=== PATIENT | male | born 1980 | race Caucasian/White ===

== ENCOUNTER 2017-02-11 10:03 | Emergency (ER) | payer OTHER ==
--- NOTE | 2017-02-11 11:28 | DIAGNOSTIC IMAGING REPORT ---
PROCEDURE: XR FINGER - LEFT (fifth finger). INDICATION: TRAUMA/INJURY TECHNIQUE: Three views. COMPARISON: None. FINDINGS: There is a large metal nail transversing the soft tissues of the distal aspect of the left fifth finger. No definite fractures identified. Osseous structures and joint spaces are otherwise normal. IMPRESSION: 1. Large metal nail traversing soft tissues of the distal left fifth finger. 2. No definite fractures identified.
--- NOTE | 2017-02-11 11:45 | DIAGNOSTIC IMAGING REPORT ---
PROCEDURE: XR FINGER - LEFT (fifth finger). INDICATION: Post removal of foreign body. Assess for fracture. TECHNIQUE: Three views (1138 hours). COMPARISON: Comparison made radiographs of the left fifth finger earlier today (02/11/2017, 1035 hours). FINDINGS: Interval removal of large metal nail foreign bodies from soft tissues of the left fifth finger. Osseous structures and are normal and there is no evidence of fracture. No evidence of residual foreign body. IMPRESSION: 1. Interim removal of large metal nail from left fifth finger. 2. No evidence of fracture.
--- NOTE | 2017-02-11 11:47 | ED CLINICAL REPORT ---
Clinical Report - Physicians/Mid Levels [facility] [address] [place] [address] 02/11/2017 10:03 Patient: JOSE ELIAS SESAY Time Seen: 10:17. Arrived- By private vehicle. Historian- patient. HISTORY OF PRESENT ILLNESS Chief Complaint: Injury to the left 5th (little) finger. The injury happened today. Occurred at a friend's house. The patient sustained a puncture wound from a nail. (he was pulling off sheet rock and a nail that was protruding punctured (through and throug) his left 5th finger). Patient is experiencing mild pain. Patient denies injury to the head or neck. No other injury. REVIEW OF SYSTEMS The patient sustained a laceration. No swelling, tingling, numbness, weakness or foreign body. PAST HISTORY See nurses notes. The patient's dominant hand is the right. PVC's. Type II diabetes mellitus treated with oral med. Tetanus immunization status is unknown. Surgeries: Shoulder surgery. Vasectomy. Medications: GlyBURIDE Oral. Allergies: No Known Drug Allergy. SOCIAL HISTORY Never smoker. Occasional alcohol use. No drug use. Is a local resident. ADDITIONAL NOTES The nursing notes have been reviewed. PHYSICAL EXAM Vital Signs: 02/11/2017 10:14 BP: 140/95. HR: 85. RR: 14. O2 saturation: 100%. Temp: 98.3 F. Pain level now: 3/10. Appearance: Alert. Oriented X3. Patient in mild distress. Head: Head atraumatic. Eyes: Eyes normal inspection. No scleral icterus or pale conjunctivae. Neck: Normal inspection. Neck supple. CVS: Normal heart rate and rhythm. Heart sounds normal. Pulses normal. Respiratory: No respiratory distress. Breath sounds normal. Abdomen: No visible injury. Skin: (nail in 5th finger). Extremities: Anatomic snuffbox, right arm. No wrist injury. Hand and wrist exam otherwise negative. Extremities otherwise negative. Neuro, Vascular and Tendons: Vascular status intact. Sensation intact. Motor intact. Tendon function intact. Neuro: Oriented X 3. No motor deficit. No sensory deficit. LABS, X-RAYS, AND EKG Lt Hand X-ray: (metallic nail in the distal phallanx). Views: AP, lateral and oblique. Technique: good. The X-rays were interpreted contemporaneously by me. Post procedure films: do not show a fracture (nail removed). PROGRESS AND PROCEDURES Removal of Soft Tissue Foreign Body: The foreign body was metal. drywall nail. Located in the left little finger. Anesthesia provided by digital block using 0.50% Marcaine. Did not use epinephrine. Wound prepped with Betadine and Hibiclens. Wound explored. Foreign body visualized, palpated and removed using hemostat. Wound irrigated extensively. The foreign body removed was deep. Dressing applied. Tetanus immunization given. Warnings provided. Course of Care: Tdap Vaccine 0.5 mL IM given. Ancef 1gm IM given. Patient/family counseled. Old ED records reviewed. Disposition: Discharged. Condition: stable and improved. CLINICAL IMPRESSION Removal of deep metal soft tissue foreign body to the left little finger. Puncture wound present. No left fingernail injury. INSTRUCTIONS Apply ice. Elevate affected areas above chest level. Protect wound and keep wound area clean. Change dressing twice daily. You may wash wounds briefly, then dry. Apply neosporin twice daily. Limit use of your left hand until better. Do not work for two days. Warnings: INFECTION: Watch for signs of infection (increasing heat and redness, pus-like drainage, swelling, or increased pain). Return or see your doctor if these signs occur. TETANUS: You were given a tetanus shot during your visit. Make a note for future reference. Your Current Medications: CONTINUE TAKING THE FOLLOWING MEDICATIONS: GlyBURIDE Oral. Prescription Medications: Ibuprofen 600mg tablets: take 1 tablet orally every 8 hours as needed for pain. Dispense thirty (30). No refills. Cephalexin 500 mg: take 1 capsule orally every 6 hours for 3 days. No refill. OTC Medications: Acetaminophen (available over the counter): take according to label instructions. Follow-up: Follow up with your doctor [facility] in about two days. Screening today revealed the patient's blood pressure to be in the hypertensive range. The patient should follow up with a primary care provider for blood pressure management. (Electronically signed by Jason Raymundo DO 02/11/2017 22:35)
--- NOTE | 2017-02-11 11:48 | ED ORDER SUMMARY ---
..... Patient: JOSE ELIAS SESAY OrderSheet [facility] VisitID: [id number] [place] [address] 36y, M Registration Date/Time: 02/11/2017 ORDER SHEET Weight: 104.1 kg Allergies: No Known Drug Allergy GENERAL ORDERS: Finger Left (5th ) Urgent (10:20 02/11/2017 [facility]) (Ack 10:22 OHernandez) (10:57 EHassan R.N.) Suture Set-up: (10:31 02/11/2017 [facility]) (Ack 10:38 TBergley) (10:57 EHassan R.N.) Finger Left (5th) (post fb removal) Urgent (11:12 02/11/2017 [facility]) (Ack 11:17 TBergley) (11:42 TBergley) Dress Wounds (bandaid with bacitracin) (11:46 02/11/2017 [facility]) (11:49 TBergley) MEDICATION ORDERS: Tdap IM 0.5 mL (NOW, per protocol) (10:22 02/11/2017 [facility]) (10:54 EHassan R.N.) Ancef IM 1 gm (NOW) (10:24 02/11/2017 [facility]) (10:54 EHassan R.N.) Bupivacaine Injection 0.5 % (soln) (place at bedside) (10:31 02/11/2017 [facility]) (10:55 EHassan R.N.) IV FLUIDS: ORDER SHEET NOTES: [Electronically signed by Ling Chang R.N. (12:00 02/11/2017)] [Electronically signed by Jason Raymundo DO (22:35 02/11/2017)] [Electronically locked/signed by Ling Chang R.N. (12:02/11/2017)]
--- NOTE | 2017-02-11 11:48 | ED ORDER SUMMARY ---
..... Patient: JOSE ELIAS SESAY OrderSheet [facility] VisitID: [id number] [place] [address] 36y, M Registration Date/Time: 02/11/2017 ORDER SHEET Weight: 104.1 kg Allergies: No Known Drug Allergy GENERAL ORDERS: Finger Left (5th ) Urgent (10:20 02/11/2017 [facility]) (Ack 10:22 OHernandez) (10:57 EHassan R.N.) Suture Set-up: (10:31 02/11/2017 [facility]) (Ack 10:38 TBergley) (10:57 EHassan R.N.) Finger Left (5th) (post fb removal) Urgent (11:12 02/11/2017 [facility]) (Ack 11:17 TBergley) (11:42 TBergley) Dress Wounds (bandaid with bacitracin) (11:46 02/11/2017 [facility]) (11:49 TBergley) MEDICATION ORDERS: Tdap IM 0.5 mL (NOW, per protocol) (10:22 02/11/2017 [facility]) (10:54 EHassan R.N.) Ancef IM 1 gm (NOW) (10:24 02/11/2017 [facility]) (10:54 EHassan R.N.) Bupivacaine Injection 0.5 % (soln) (place at bedside) (10:31 02/11/2017 [facility]) (10:55 EHassan R.N.) IV FLUIDS: ORDER SHEET NOTES: [Electronically signed by Ling Chang R.N. (12:00 02/11/2017)] [Electronically signed by Jason Raymundo DO (22:35 02/11/2017)] [Electronically locked/signed by Ling Chang R.N. (12:02/11/2017)]
--- NOTE | 2017-02-11 11:48 | ED NURSING NOTES ---
Clinical Report - Nurses [facility] [address] [place] [address] 02/11/2017 10:03 Patient: JOSE ELIAS SESAY TRIAGE Triage time 1012 AM. Acuity: LEVEL 4. Chief Complaint: INJURY TO LEFT HAND. INJURY TO THE LEFT LITTLE FINGER (Nail thru the finger). Alert. No acute distress. SEPSIS SCREEN: Sepsis Screen. Negative (no infection suspected/documented). --10:19 Ling Chang R.N. 10:14 02/11/17. BP: 140/95 (regular adult cuff) taken on the left arm, via an automated monitor, while sitting. HR: 85. RR: 14. O2 saturation: 100%. Temp: 98.3 F (oral). Pain level now: 12/23. --10:19 Ling Chang R.N. Weight: 104.1 kg. Height/Length: 70 inches. BMI: 32.9. --10:14 Ling Chang R.N. Medications GlyBURIDE Oral. --10:20 Ling Chang R.N. Allergies No Known Drug Allergy. --12:00 Ling Chang R.N. Medication/allergy information source: the patient. --10:19 Ling Chang R.N. History Arrived by private vehicle. Historian: patient. Accompanied by family. Primary physician (none). 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 Not up to date with immunizations.). This occurred just prior to arrival and today. Occurred at friend's house. He has metallic foreign material (for certain) (left pinky finger). No neck pain, weakness or numbness. Treatment DRUG SAFETY DATA MANAGEMENT SPECIALIST: None. PAST MEDICAL HX: Tetanus status: unknown. Immunizations: status is unknown. SOCIAL HX: Never smoker. Occasional alcohol use. No drug use. No infectious disease exposure. ABUSE ASSESSMENT: No report of abuse. SELF HARM ASSESSMENT: A self harm assessment was performed. The patient answered "no" to the question "Do you have thoughts of harming or killing yourself?" and "Have you recently had thoughts about harming or killing others?". FALL RISK ASSESSMENT: Fall risk assessment completed. No fall risk identified. NUTRITIONAL RISK ASSESSMENT: The nutritional risk assessment revealed no deficiencies. FUNCTIONAL ASSESSMENT: Functional assessment: no impairments noted. LEARNING NEEDS ASSESSMENT: The learning needs assessment revealed no barriers. SKIN INTEGRITY ASSESSMENT: Skin integrity risk assessment completed. No skin integrity risk identified. --10:19 Ling Chang R.N. ( Pt does state that local anesthetics do not work). --10:21 Ling Chang R.N. PROBLEMS: Diabetes Mellitus Type 2. --10:21 Ling Chang R.N. ADDITIONAL SURGERIES: Shoulder Surgery. Visectomy. --10:21 Ling Chang R.N. Interventions ID band on patient. --10:19 Ling Chang R.N. PHYSICAL ASSESSMENT Ambulatory to room. GENERAL / NEURO / PSYCH: Oriented X 4. Alert. Appears in no acute distress. No weakness. No numbness. EXTREMITIES: Capillary refill is less than 2 seconds in the extremities. Extremity pulses are within normal limits. Extremities exhibit normal ROM. Left hand: visualized foreign body. No tenderness, swelling or deformity. SKIN: Skin intact. Skin is warm and dry. --10:19 Ling Chang R.N. NURSING PROGRESS NOTES The initial plan of care for this patient has been created This plan of care was discussed with the patient. Reassurance given. Two patient identifiers checked. Call light placed in reach. Side rails up. Bed placed in lowest position. Brakes of bed on. Patient ready for evaluation- ED physician notified. --10:19 Ling Chang R.N. 10:54 02/11/2017 TDAP IM 0.5 mL given. (Lot#: [id number], expiration date: 07/23/2018, Vacuum Cleaner Repairer: sanofi pasteur). Given in the right deltoid. Allergies verified and confirmed 5 rights. Vaccine information statement provided to the patient. --10:54 Ling Chang R.N. 10:54 02/11/2017 Ancef (CeFAZolin Sodium) IM 1 gm given. Given in the left deltoid (split dose). Allergies verified and confirmed 5 rights. --10:54 Ling Chang R.N. 10:55 02/11/2017 Bupivacaine Injection Injectable 0.5 % given. Allergies verified and confirmed 5 rights. (Given by AR virgen left side). --10:55 Ling Chang R.N. Applied clean dressing consisting of Band-Aid, following the application of antibiotic ointment (bacitracin). --11:50 Deena Tavarez 11:35 02/11/2017 Bupivacaine Injection Response: no adverse reaction. --12:00 Ling Chang R.N. 11:43 02/11/2017 Ancef IM Response: no adverse reaction pain is improving. --11:58 Ling Chang R.N. DISPOSITION / DISCHARGE Departure time: 1155 AM. Condition at departure: improved and stable. The goals identified in the patient's plan of care were met. No learning barriers present. Discharge instructions provided and reviewed with the patient. Reviewed medication(s) side effects, precautions, dosing and course information. Prescription(s) given to the patient. Work note given. Patient verbalized understanding. Written instructions provided in Kinyarwanda. The patient was discharged by the physician. He was discharged home and unaccompanied at time of discharge. He left the Emergency Department ambulatory and via private vehicle. Patient driving. FALL RISK ASSESSMENT: Fall risk assessment completed. No fall risk identified. --11:57 Ling Chang R.N. 11:45 02/11/17. BP: 132/79 (regular adult cuff) taken on the left arm, via an automated monitor, while sitting. HR: 69. RR: 16. O2 saturation: 97%. Temp: 98 F (oral). Pain level now: 0/10. --11:57 Ling Chang R.N. Locked/Released at 02/11/2017 12:00 by Ling Chang R.N.
--- NOTE | 2017-02-11 11:48 | ED NURSING NOTES ---
Clinical Report - Nurses [facility] [address] [place] [address] 02/11/2017 10:03 Patient: JOSE ELIAS SESAY TRIAGE Triage time 1012 AM. Acuity: LEVEL 4. Chief Complaint: INJURY TO LEFT HAND. INJURY TO THE LEFT LITTLE FINGER (Nail thru the finger). Alert. No acute distress. SEPSIS SCREEN: Sepsis Screen. Negative (no infection suspected/documented). --10:19 Ling Chang R.N. 10:14 02/11/17. BP: 140/95 (regular adult cuff) taken on the left arm, via an automated monitor, while sitting. HR: 85. RR: 14. O2 saturation: 100%. Temp: 98.3 F (oral). Pain level now: 12/23. --10:19 Ling Chang R.N. Weight: 104.1 kg. Height/Length: 70 inches. BMI: 32.9. --10:14 Ling Chang R.N. Medications GlyBURIDE Oral. --10:20 Ling Chang R.N. Allergies No Known Drug Allergy. --12:00 Ling Chang R.N. Medication/allergy information source: the patient. --10:19 Ling Chang R.N. History Arrived by private vehicle. Historian: patient. Accompanied by family. Primary physician (none). 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 Not up to date with immunizations.). This occurred just prior to arrival and today. Occurred at friend's house. He has metallic foreign material (for certain) (left pinky finger). No neck pain, weakness or numbness. Treatment DEVELOPER ADVOCATE: None. PAST MEDICAL HX: Tetanus status: unknown. Immunizations: status is unknown. SOCIAL HX: Never smoker. Occasional alcohol use. No drug use. No infectious disease exposure. ABUSE ASSESSMENT: No report of abuse. SELF HARM ASSESSMENT: A self harm assessment was performed. The patient answered "no" to the question "Do you have thoughts of harming or killing yourself?" and "Have you recently had thoughts about harming or killing others?". FALL RISK ASSESSMENT: Fall risk assessment completed. No fall risk identified. NUTRITIONAL RISK ASSESSMENT: The nutritional risk assessment revealed no deficiencies. FUNCTIONAL ASSESSMENT: Functional assessment: no impairments noted. LEARNING NEEDS ASSESSMENT: The learning needs assessment revealed no barriers. SKIN INTEGRITY ASSESSMENT: Skin integrity risk assessment completed. No skin integrity risk identified. --10:19 Ling Chang R.N. ( Pt does state that local anesthetics do not work). --10:21 Ling Chang R.N. PROBLEMS: Diabetes Mellitus Type 2. --10:21 Ling Chang R.N. ADDITIONAL SURGERIES: Shoulder Surgery. Visectomy. --10:21 Ling Chang R.N. Interventions ID band on patient. --10:19 Ling Chang R.N. PHYSICAL ASSESSMENT Ambulatory to room. GENERAL / NEURO / PSYCH: Oriented X 4. Alert. Appears in no acute distress. No weakness. No numbness. EXTREMITIES: Capillary refill is less than 2 seconds in the extremities. Extremity pulses are within normal limits. Extremities exhibit normal ROM. Left hand: visualized foreign body. No tenderness, swelling or deformity. SKIN: Skin intact. Skin is warm and dry. --10:19 Ling Chang R.N. NURSING PROGRESS NOTES The initial plan of care for this patient has been created This plan of care was discussed with the patient. Reassurance given. Two patient identifiers checked. Call light placed in reach. Side rails up. Bed placed in lowest position. Brakes of bed on. Patient ready for evaluation- ED physician notified. --10:19 Ling Chang R.N. 10:54 02/11/2017 TDAP IM 0.5 mL given. (Lot#: [id number], expiration date: 07/23/2018, Cost And Sales Record Supervisor: sanofi pasteur). Given in the right deltoid. Allergies verified and confirmed 5 rights. Vaccine information statement provided to the patient. --10:54 Ling Chang R.N. 10:54 02/11/2017 Ancef (CeFAZolin Sodium) IM 1 gm given. Given in the left deltoid (split dose). Allergies verified and confirmed 5 rights. --10:54 Ling Chang R.N. 10:55 02/11/2017 Bupivacaine Injection Injectable 0.5 % given. Allergies verified and confirmed 5 rights. (Given by AR virgen left side). --10:55 Ling Chang R.N. Applied clean dressing consisting of Band-Aid, following the application of antibiotic ointment (bacitracin). --11:50 Deena Tavarez 11:35 02/11/2017 Bupivacaine Injection Response: no adverse reaction. --12:00 Ling Chang R.N. 11:43 02/11/2017 Ancef IM Response: no adverse reaction pain is improving. --11:58 Ling Chang R.N. DISPOSITION / DISCHARGE Departure time: 1155 AM. Condition at departure: improved and stable. The goals identified in the patient's plan of care were met. No learning barriers present. Discharge instructions provided and reviewed with the patient. Reviewed medication(s) side effects, precautions, dosing and course information. Prescription(s) given to the patient. Work note given. Patient verbalized understanding. Written instructions provided in Chinese. The patient was discharged by the physician. He was discharged home and unaccompanied at time of discharge. He left the Emergency Department ambulatory and via private vehicle. Patient driving. FALL RISK ASSESSMENT: Fall risk assessment completed. No fall risk identified. --11:57 Ling Chang R.N. 11:45 02/11/17. BP: 132/79 (regular adult cuff) taken on the left arm, via an automated monitor, while sitting. HR: 69. RR: 16. O2 saturation: 97%. Temp: 98 F (oral). Pain level now: 0/10. --11:57 Ling Chang R.N. Locked/Released at 02/11/2017 12:00 by Ling Chang R.N.
--- NOTE | 2017-02-11 22:35 | ED DISCHARGE INSTRUCTIONS ---
Patient: JOSE ELIAS SESAY General Instructions [facility] VisitID: [id number] [place] [address] 36y, M Registration Date/Time: 02/11/2017 Removal of deep metal soft tissue foreign body to the left little finger. Puncture wound present. No left fingernail injury. INSTRUCTIONS Apply ice. Elevate affected areas above chest level. Protect wound and keep wound area clean. Change dressing twice daily. You may wash wounds briefly, then dry. Apply neosporin twice daily. Limit use of your left hand until better. Do not work for two days. Warnings: INFECTION: Watch for signs of infection (increasing heat and redness, pus-like drainage, swelling, or increased pain). Return or see your doctor if these signs occur. TETANUS: You were given a tetanus shot during your visit. Make a note for future reference. Your Current Medications: CONTINUE TAKING THE FOLLOWING MEDICATIONS: GlyBURIDE Oral. Prescription Medications: Ibuprofen 600mg tablets: take 1 tablet orally every 8 hours as needed for pain. Dispense thirty (30). No refills. Cephalexin 500 mg: take 1 capsule orally every 6 hours for 3 days. No refill. OTC Medications: Acetaminophen (available over the counter): take according to label instructions. Follow-up: Follow up with your doctor [facility] in about two days. Screening today revealed the patient's blood pressure to be in the hypertensive range. The patient should follow up with a primary care provider for blood pressure management. ADDITIONAL INFORMATION Foreign ObjectUnder The Skin, Removed An object has been removed from under your skin. Although care was taken to remove all particles present, there is always a chance that a small piece may have been left behind. Very small particles that remain under the skin usually cause no problem and need no further treatment. Home care The following guidelines will help you care for your wound at home: Keep the wound clean and dry. If a bandage was applied and it becomes wet or dirty, replace it. Otherwise, leave it in place for the first 24 hours, then change it once a day or as directed. Ifsutureswere used, clean the wound daily: After removing the bandage, wash the area with soap and water. After cleaning, apply a thin layer of antibiotic ointment. This will keep the wound clean and make it easier to remove the stitches. Reapply the bandage. You may shower as usual after the first 24 hours, but do not soak the area in water (no baths or swimming) until the sutures are removed. If asurgical tape closureswere used, keep the area clean and dry. If it becomes wet, blot it dry with a towel. You may use acetaminophen or ibuprofen to control pain, unless another pain medicine was prescribed.If you have chronic liver or kidney disease or ever had a stomach ulcer or GI bleeding, talk with your doctor before using these medicines. Follow-up care Most skin wounds heal within ten days. However, there is an increased risk of infection if there is any particle remaining under the skin. Therefore, check the wound daily for the signs listed below. Stitches should be removed within 714 days. If surgical tape closures were used, remove them after seven days unless told otherwise. Note:Any X-rays taken will be reviewed by a radiologist. You will be notified if there are new findings that may affect your care. When to seek medical care Get prompt medical attention if any of the following occur: Increasing pain in the wound Redness, swelling or pus coming from the wound Fever of 100.4F (38C) or higher, or as directed by your health care provider Diphtheria Toxoid Adsorbed, Pertussis Vaccine, Acellular (Adsorbed), Tetanus Toxoid, Adsorbed Suspension for injection What is this medicine? DIPHTHERIA and TETANUS TOXOIDS; PERTUSSIS VACCINE (dif THEER ee uh and TET n us TOK soids; per TUS iss vak SEEN) is used to prevent diphtheria, tetanus, and pertussis infections. How should I use this medicine? This vaccine is for injection into a muscle. It is given by a health care center manager. A copy of Vaccine Information Statements will be given before each vaccination. Read this sheet carefully each time. The sheet may change frequently. Talk to your software development test engineer regarding the use of this vaccine in children. While the DTP vaccine may be given to children ages 6 weeks to 7 years and the Tdap vaccine may be given to children at least 10 years old, precautions do apply. What side effects may I notice from receiving this medicine? Side effects that you should report to your doctor or health care center manager as soon as possible: allergic reactions like skin rash, itching or hives, swelling of the face, lips, or tongue breathing problems fever of 103 degrees F or more flu-like symptoms inconsolable crying infection pain, tingling, numbness in the hands or feet seizures swelling of arm or leg that was injected unusually weak or tired Side effects that usually do not require immediate medical attention (report these side effects to your doctor or health care center manager if they continue or are bothersome): fussy, irritable loss of appetite fever of 102 degrees F or less pain, tenderness, redness, swelling, or a 'knot' at site where injected vomiting What may interact with this medicine? immune globulin medicines that suppress your immune function like adalimumab, anakinra, infliximab medicines to treat cancer medicines that treat or prevent blood clots like warfarin, enoxaparin, and dalteparin steroid medicines like prednisone or cortisone What if I miss a dose? It is important not to miss your dose. Call your doctor or health care center manager if you are unable to keep an appointment. Where should I keep my medicine? This drug is given in a hospital or clinic and will not be stored at home. What should I tell my health care provider before I take this medicine? They need to know if you have any of these conditions: blood disorders like hemophilia fever or infection immune system problems neurologic disease seizures an unusual or allergic reaction to vaccines, thimerosal, latex, other medicines, foods, dyes, or preservatives or trying to get breast-feeding What should I watch for while using this medicine? See your health care provider for all shots of this vaccine as directed. To have protection from infection, you must have 3 shots of this vaccine plus boosters as needed. Tell your doctor right away if you have any serious or unusual side effects after getting this vaccine. Ibuprofen Oral tablet What is this medicine? IBUPROFEN (eye BYOO proe fen) is a non-steroidal anti-inflammatory drug (NSAID). It is used for dental pain, fever, headaches or migraines, osteoarthritis, rheumatoid arthritis, or painful monthly periods. It can also relieve minor aches and pains caused by a cold, flu, or sore throat. How should I use this medicine? Take this medicine by mouth with a glass of water. Follow the directions on the prescription label. Take this medicine with food if your stomach gets upset. Try to not lie down for at least 10 minutes after you take the medicine. Take your medicine at regular intervals. Do not take your medicine more often than directed. A special MedGuide will be given to you by the pharmacist with each prescription and refill. Be sure to read this information carefully each time. Talk to your software development test engineer regarding the use of this medicine in children. Special care may be needed. What side effects may I notice from receiving this medicine? Side effects that you should report to your doctor or health care center manager as soon as possible: allergic reactions like skin rash, itching or hives, swelling of the face, lips, or tongue black or bloody stools, blood in the urine or in vomit breathing problems changes in vision chest pain general ill feeling or flu-like symptoms nausea or vomiting redness, blistering, peeling or loosening of the skin, including inside the mouth slurred speech or weakness on one side of the body stomach pain unexplained weight gain or swelling unusually weak or tired yellowing of eyes or skin Side effects that usually do not require medical attention (report to your doctor or health care center manager if they continue or are bothersome): constipation or diarrhea dizziness gas or heartburn stomach upset What may interact with this medicine? Do not take this medicine with any of the following medications: cidofovir ketorolac methotrexate pemetrexed This medicine may also interact with the following medications: alcohol aspirin diuretics lithium other drugs for inflammation like prednisone warfarin What if I miss a dose? If you miss a dose, take it as soon as you can. If it is almost time for your next dose, take only that dose. Do not take double or extra doses. Where should I keep my medicine? Keep out of the reach of children. Store at room temperature between 15 and 30 degrees C (59 and 86 degrees F). Keep container tightly closed. Throw away any unused medicine after the expiration date. What should I tell my health care provider before I take this medicine? They need to know if you have any of these conditions: asthma cigarette smoker drink more than 3 alcohol containing drinks a day heart disease or circulation problems such as heart failure or leg edema (fluid retention) high blood pressure kidney disease liver disease stomach bleeding or ulcers an unusual or allergic reaction to ibuprofen, aspirin, other NSAIDS, other medicines, foods, dyes, or preservatives or trying to get breast-feeding What should I watch for while using this medicine? Tell your doctor or healthcare professional if your symptoms do not start to get better or if they get worse. This medicine does not prevent heart attack or stroke. In fact, this medicine may increase the chance of a heart attack or stroke. The chance may increase with longer use of this medicine and in people who have heart disease. If you take aspirin to prevent heart attack or stroke, talk with your doctor or health care center manager. Do not take other medicines that contain aspirin, ibuprofen, or naproxen with this medicine. Side effects such as stomach upset, nausea, or ulcers may be more likely to occur. Many medicines available without a prescription should not be taken with this medicine. This medicine can cause ulcers and bleeding in the stomach and intestines at any time during treatment. Ulcers and bleeding can happen without warning symptoms and can cause . To reduce your risk, do not smoke cigarettes or drink alcohol while you are taking this medicine. You may get drowsy or dizzy. Do not drive, use machinery, or do anything that needs mental alertness until you know how this medicine affects you. Do not stand or sit up quickly, especially if you are an older patient. This reduces the risk of dizzy or fainting spells. This medicine can cause you to bleed more easily. Try to avoid damage to your teeth and gums when you brush or floss your teeth. Cephalexin Monohydrate Oral tablet What is this medicine? CEPHALEXIN (sef a DAWOOD in) is a cephalosporin antibiotic. It is used to treat certain kinds of bacterial infections It will not work for colds, flu, or other viral infections. How should I use this medicine? Take this medicine by mouth with a full glass of water. Follow the directions on the prescription label. This medicine can be taken with or without food. Take your medicine at regular intervals. Do not take your medicine more often than directed. Take all of your medicine as directed even if you think you are better. Do not skip doses or stop your medicine early. Talk to your software development test engineer regarding the use of this medicine in children. While this drug may be prescribed for selected conditions, precautions do apply. What side effects may I notice from receiving this medicine? Side effects that you should report to your doctor or health care center manager as soon as possible: allergic reactions like skin rash, itching or hives, swelling of the face, lips, or tongue breathing problems pain or trouble passing urine redness, blistering, peeling or loosening of the skin, including inside the mouth severe or watery diarrhea unusually weak or tired yellowing of the eyes, skin Side effects that usually do not require medical attention (report to your doctor or health care center manager if they continue or are bothersome): gas or heartburn genital or anal irritation headache joint or muscle pain nausea, vomiting What may interact with this medicine? probenecid some other antibiotics What if I miss a dose? If you miss a dose, take it as soon as you can. If it is almost time for your next dose, take only that dose. Do not take double or extra doses. There should be at least 4 to 6 hours between doses. Where should I keep my medicine? Keep out of the reach of children. Store at room temperature between 59 and 86 degrees F (15 and 30 degrees C). Throw away any unused medicine after the expiration date. What should I tell my health care provider before I take this medicine? They need to know if you have any of these conditions: kidney disease stomach or intestine problems, especially colitis an unusual or allergic reaction to cephalexin, other cephalosporins, penicillins, other antibiotics, medicines, foods, dyes or preservatives or trying to get breast-feeding What should I watch for while using this medicine? Tell your doctor or health care center manager if your symptoms do not begin to improve in a few days. Do not treat diarrhea with over the counter products. Contact your doctor if you have diarrhea that lasts more than 2 days or if it is severe and watery. If you have diabetes, you may get a false-positive result for sugar in your urine. Check with your doctor or health care center manager. Acetaminophen Oral tablet What is this medicine? ACETAMINOPHEN (a set a ZACK ryan fen) is a pain reliever. It is used to treat mild pain and fever. How should I use this medicine? Take this medicine by mouth with a glass of water. Follow the directions on the package or prescription label. Take your medicine at regular intervals. Do not take your medicine more often than directed. Talk to your software development test engineer regarding the use of this medicine in children. While this drug may be prescribed for children as young as 6 years of age for selected conditions, precautions do apply. What side effects may I notice from receiving this medicine? Side effects that you should report to your doctor or health care center manager as soon as possible: allergic reactions like skin rash, itching or hives, swelling of the face, lips, or tongue breathing problems fever or sore throat redness, blistering, peeling or loosening of the skin, including inside the mouth trouble passing urine or change in the amount of urine unusual bleeding or bruising unusually weak or tired yellowing of the eyes or skin Side effects that usually do not require medical attention (report to your doctor or health care center manager if they continue or are bothersome): headache nausea, stomach upset What may interact with this medicine? alcohol imatinib isoniazid other medicines with acetaminophen What if I miss a dose? If you miss a dose, take it as soon as you can. If it is almost time for your next dose, take only that dose. Do not take double or extra doses. Where should I keep my medicine? Keep out of reach of children. Store at room temperature between 20 and 25 degrees C (68 and 77 degrees F). Protect from moisture and heat. Throw away any unused medicine after the expiration date. What should I tell my health care provider before I take this medicine? They need to know if you have any of these conditions: if you frequently drink alcohol containing drinks liver disease an unusual or allergic reaction to acetaminophen, other medicines, foods, dyes or preservatives or trying to get breast-feeding What should I watch for while using this medicine? Tell your doctor or health care center manager if the pain lasts more than 10 days (5 days for children), if it gets worse, or if there is a new or different kind of pain. Also, check with your doctor if a fever lasts for more than 3 days. Do not take other medicines that contain acetaminophen with this medicine. Always read labels carefully. If you have questions, ask your doctor or pharmacist. If you take too much acetaminophen get medical help right away. Too much acetaminophen can be very dangerous and cause liver damage. Even if you do not have symptoms, it is important to get help right away. You have been given the following additional information: Foreign Body, Soft Tissue (Removed) Diphtheria Toxoid Adsorbed, Pertussis Vaccine, Acellular (Adsorbed), Tetanus Toxoid, Adsorbed Suspension for injection Ibuprofen Oral tablet Cephalexin Monohydrate Oral tablet Acetaminophen Oral tablet Limit use of your left hand until better. Do not work for two days. (Electronically signed by Jason Raymundo DO 02/11/2017 22:35)
--- NOTE | 2017-02-11 22:35 | ED MAR SUMMARY ---
..... Medication Administration Record [facility] [address] [place] [address] Patient: JOSE ELIAS SESAY Visit ID: [id number] 36y, M Weight: 104.1 kg Height/Length: 70 in BMI: 32.9 ALLERGIES: No Known Drug Allergy Given 10:54 02/11/2017 Ling Chang RNabilaNNabila Medication Administered: TDAP [IM], Dose: 0.5 mL IM. Medication Ordered: Tdap IM 0.5 mL (NOW, per protocol). Given 10:54 02/11/2017 Ling Chang RNabilaN. Medication Administered: ANCEF [IM] (CEFAZOLIN SODIUM), Dose: 1 gm IM. Medication Ordered: Ancef IM 1 gm (NOW). Given 10:55 02/11/2017 Ling Chang, R.N. Medication Administered: BUPIVACAINE [INJECTION], Dose: 0.5 % Injectable Injection. Medication Ordered: Bupivacaine Injection 0.5 % (soln) (place at bedside).
--- NOTE | 2017-02-11 22:35 | ED MED RECONCILIATION SUMMARY ---
Patient: JOSE ELIAS SESAY Medication Reconciliation Report [facility] VisitID: [id number] [place] [address] 36y, M Registration Date/Time: 02/11/2017 Weight: 104.1 kg Height/Length: 70 in. BMI: 32.9 ALLERGIES: No Known Drug Allergy The patient's Home Medications are listed below: CONTINUE TAKING THE FOLLOWING MEDICATIONS: GlyBURIDE Oral The source(s) of the original Home Medication information: patient The following Medications were given to the patient in the Emergency Department: TDAP [IM] IM 0.5 mL, administered: 02/11/2017 10:54:00 AM Ancef [IM] IM 1 gm, administered: 02/11/2017 10:54:00 AM Bupivacaine [Injection] Injection 0.5 %, administered: 02/11/2017 10:55:00 AM The following Medications were prescribed to the patient: Acetaminophen (available over the counter): take according to label instructions. -- Jason Raymundo DO Ibuprofen 600mg tablets: take 1 tablet orally every 8 hours as needed for pain. Dispense thirty (30). No refills. -- Jason Raymundo DO Cephalexin 500 mg: take 1 capsule orally every 6 hours for 3 days. No refill. -- Jason Raymundo DO
--- NOTE | 2017-02-11 22:35 | ED MED RECONCILIATION SUMMARY ---
Patient: JOSE ELIAS SESAY Medication Reconciliation Report [facility] VisitID: [id number] [place] [address] 36y, M Registration Date/Time: 02/11/2017 Weight: 104.1 kg Height/Length: 70 in. BMI: 32.9 ALLERGIES: No Known Drug Allergy The patient's Home Medications are listed below: CONTINUE TAKING THE FOLLOWING MEDICATIONS: GlyBURIDE Oral The source(s) of the original Home Medication information: patient The following Medications were given to the patient in the Emergency Department: TDAP [IM] IM 0.5 mL, administered: 02/11/2017 10:54:00 AM Ancef [IM] IM 1 gm, administered: 02/11/2017 10:54:00 AM Bupivacaine [Injection] Injection 0.5 %, administered: 02/11/2017 10:55:00 AM The following Medications were prescribed to the patient: Acetaminophen (available over the counter): take according to label instructions. -- Jason Raymundo DO Ibuprofen 600mg tablets: take 1 tablet orally every 8 hours as needed for pain. Dispense thirty (30). No refills. -- Jason Raymundo DO Cephalexin 500 mg: take 1 capsule orally every 6 hours for 3 days. No refill. -- Jason Raymundo DO
--- NOTE | 2017-02-11 22:35 | ED MAR SUMMARY ---
..... Medication Administration Record [facility] [address] [place] [address] Patient: JOSE ELIAS SESAY Visit ID: [id number] 36y, M Weight: 104.1 kg Height/Length: 70 in BMI: 32.9 ALLERGIES: No Known Drug Allergy Given 10:54 02/11/2017 Ling Chang RNabilaNNabila Medication Administered: TDAP [IM], Dose: 0.5 mL IM. Medication Ordered: Tdap IM 0.5 mL (NOW, per protocol). Given 10:54 02/11/2017 Ling Chang RNabilaN. Medication Administered: ANCEF [IM] (CEFAZOLIN SODIUM), Dose: 1 gm IM. Medication Ordered: Ancef IM 1 gm (NOW). Given 10:55 02/11/2017 Ling Chang, R.N. Medication Administered: BUPIVACAINE [INJECTION], Dose: 0.5 % Injectable Injection. Medication Ordered: Bupivacaine Injection 0.5 % (soln) (place at bedside).
== END 2017-02-11 11:55 | disposition home or self-care (01) ==
LOC: ED SRH 10:03
DX: S61.247A Puncture wound with foreign body of left little finger without damage to nail, initial encounter (principal); W45.0XXA Nail entering through skin, initial encounter; W27.8XXA Contact with other nonpowered hand tool, initial encounter; Y93.E9 Activity, other interior property and clothing maintenance; Y92.009 Unspecified place in unspecified non-institutional (private) residence as the place of occurrence of the external cause; Z79.899 Other long term (current) drug therapy; Z23 Encounter for immunization